=== PATIENT | female | born 1960 | race Caucasian/White ===

== ENCOUNTER 2024-08-08 18:11 | Inpatient (IN) | payer BC, SELFPAY ==
[2024-08-08] VITALS (21 sets, daily range): BP systolic 120–162; BP diastolic 84–113; PULSE 78–94; RESP 12–23; TEMP 36.3–36.4; O2SAT 95–98; BMI 22.1; BMI 22.0
--- NOTE | 2024-08-08 18:14 | ECG_ITS ---
[facility]: 2024-[facility]08 Pat Name: Monica Chinchilla Department: Room: Gender: Female Market Research Interviewer: : 1960 Requested By: Yulia Saldivar Order Number: [id number] [email or web address] MD: Rojelio Mccloud M.D. Measurements Intervals [place] Rate: 85 P: 71 VT: 141 QRS: 69 QRSD: 78 T: 91 QT: 357 QTc: 427 Interpretive Statements SINUS RHYTHM No previous ECG available for comparison Electronically Signed On 08-08-2024 19:12:41 FLIGHT SECURITY SPECIALIST by Rojelio Mccloud M.D. [id number]
--- NOTE | 2024-08-08 18:14 | XACV_ITS ---
Ht: 160 cm Wt: 54 kg BSA: 1.55 m2 Gender: Female : 1960 Any Known Allergies: Penicillins Exam Priority: Routine Procedure(s): Procedure Description: Diagnostic procedure Procedure Description: PCI procedure Procedure Description: Left Heart Catheterization Procedure Description: Left ventriculography Procedure Description: PTCA Procedure Description: Miscellaneous Procedure Description: ACT Procedure Description: Coronary Angiography Diagnostic Cath Status: Emergency Diagnostic Findings * Left Main has no disease. * Circumflex has no disease. Luminal irregularities without significant stenosis. * Mid Left Anterior Descending: subtotal occlusion, MUSTAPHA: 3 flow. * Mid Right Coronary Artery: moderate 50% stenosis, MUSTAPHA: 3 flow. * Right Posterior AV: severe 90% stenosis, MUSTAPHA: 3 flow. * Posterior Descending Right: significant 80% stenosis, MUSTAPHA: 3 flow. * Coronary angiography shows right dominance. PCI Status: Urgent Conclusions 1. There is subtotal occlusion coronary artery disease with two vessel disease. 2. The septal and anterolateral rosenthal are hypokinetic. 3. The apex in the DSOUZA view is hypokinetic. 4. All other visualized rosenthal normal. 5. Normal left ventricular systolic function. Ejection fraction of 60%. Recommendations * 1-Return to ICU for close monitoring and routine PCI care 2-Continue IV heparin drip as per ACS protocol 3-Hold Plavix for possible CABG 4-Statin with LDL goal of 70 mg/dl, aspirin 81 mg p.o. daily for life long 5-CT surgery consults for CABG 6-Optimal medical management for [place] 7-Follow up with Dr. Wilson in four weeks and establish care with primary care physician. Diagnostic RX Recommendation: CABG LV EDP: 26 mmHg Ventriculography Ejection Fraction: 60.0 % Pressures Phase:Rest AO : 117 / 88 ( 101 ) @ 1:34:07 PM 126 / 83 ( 103 ) @ 1:34:07 PM 138 / 83 ( 109 ) @ 1:34:07 PM 143 / 59 ( 99 ) @ 1:34:07 PM LV : 148 / 5 / 23 @ 1:34:07 PM 4 / -3 / 4 @ 1:34:07 PM 146 / 5 / 20 @ 1:34:07 PM 145 / 4 / 20 @ 1:34:07 PM Valves Phase:DefaultPhase AV : 6.0 @ 7:34:07 PM AV Mean Gradient: 9.0 @ 7:34:07 PM Clinical Evaluation EBL: 5mL-10mL Procedural Details Procedure Consent Obtained. Pre-Procedure Time Out. Identified patient by full name and date of as verbalized by the patient/guarantor. Does the consent match the physician's order: N/A Emergent. Accurate & Complete Informed Consent: N/A Emergent. Inpatient/Outpatient History & Physical on Chart: N/A Emergent. If H&P is completed, is and addenduem needed: N/A Emergent; If yes, is the addendum complete: N/A Emergent. Visualize and Verify Site with Patient/Guarantor: N/A. Relevant Radiology Images available: N/A Emergent. Pre-op teaching completed and patient verbalized understanding. The risks, benefits, and alternatives of sedation and/or procedure were discussed by physician. The patient agrees to continue. Procedure started. Correct patient, site and procedure confirmed by cath team. PERRLA. Strong, equal hand ager operator bilaterally. Lungs clear x 5 lobes. IV Site on Arrival: 18 gauge in the left anticubital. IV Fluids: 0.9% NaCl at KVO. 400 mL infused prior to hemodialysis lab technician. Oxygen started at 2liters/min via nasal canula. right groin was prepped with chloroprep then draped in the usual sterile fashion. Baseline sample Acquired. HR: 90 BPM. right radial was prepped with chloroprep then draped in the usual sterile fashion. Physician arrived. Equipment: 6F - Radial. Cardiac Cath Pack. ACIST Manifold Kit Model BT 2000. Heparinized Saline (2 units/mL), 1000 mL bag. Physician scrubbed in. Immediate Pre-Procedure Time Out. Correct Patient: N/A Emergent; Correct Procedure: N/A Emergent; Correct Site: N/A Emergent; Correct Patient Position: N/A Emergent; Correct Supplies: N/A Emergent; Dried Flammable Prep: N/A Emergent; Blood Products Available: N/A Emergent;. Lidocaine 1% infiltrated to the right radial. Arterial access obtained. ACT drawn. Results 269 seconds. Therapeutic limits - pre-heparin administration 90-150 seconds and monitoring heparin during a vascular procedure >250 seconds. 6 gibraltarian XB 3 guide catheter was inserted over the wire. Runthrough guidewire was advanced through the guide catheter to lesion in the mid LAD. Inflation number : 1 A AB MINI TREK 1.50X6 RX BALLOON was prepped and advanced across the Mid LAD , then inflated to 12 ROBBIN for 0:15 seconds. Balloon pulled back on wire to check results. Results checked. Balloon out. Wire out. Guide catheter out. A 5 gibraltarian JR4 catheter in over wire. Called house superviser to get Nitro drip. Multiple views taken of right coronary artery. Catheter removed over the exchange wire. A 5 gibraltarian Angled Pig catheter in over wire. House super arrived. EDP Sample taken: LV 148/5,23; HR: 90 BPM; SpO2: 100%. LV gram performed in DSOUZA @ 10 mL/second for a total of 30 mL. EDP Sample taken: LV 4/-4,4; HR: 86 BPM; SpO2: 99%. EDP Sample taken: LV 146/5,20; HR: 88 BPM; SpO2: 100%. Pullback taken: LV 145/4,20; AO 138/83(109); Mean: 9mmHg, Peak to Peak: 6mmHg, SEP: 23sec/min; HR: 88 BPM; SpO2: 99%. Catheter removed over the exchange wire. Nitro drip started at 10 mcg. Physician scrubbed out. ACT drawn. Results 291 seconds. Therapeutic limits - pre-heparin administration 90-150 seconds and monitoring heparin during a vascular procedure >250 seconds. A TR Band was successful obtaining hemostatsis at the Right Radial artery insertion site. TR band placed. Hemostasis obtained. Post Procedure: Pulses reassessed and unchanged. PERRLA. Strong, equal hand ager operator bilaterally. No VTE prophylaxis required. Medication's Wasted: Lidocaine 1% = 18 mL. Medication's Wasted: Nitro = 49.8 mg. Medication's Wasted: Other = versed 1 mg. Medication's Wasted: Other = fentanyl 50 mcg. Contrast type used: Visipaque 320 mgI/mL, 500 mL bottle. Post-op diagnosis: stemi. PCI Indication: STEMI. Complications: none. Estimated blood loss: 5mL-10mL. Responsiveness - Normal response to verbal stimuli; alert and oriented, PERRLA. Airway - Unaffected, no intervention required; spontaneous ventilation. Circulation: W/N/L, pulses unchanged. Nausea/Vomiting: No. Total IV fluids: 59 mL. Procedure completed. Patient transferred by bed to ICU. Vital chart was stopped. Access Site Site: Right Radial artery Sheath Size: 6 Fr Hemostasis Method: TR Band Hemostasis Success: Successful Procedure Medications Start: 6:41 PM Stop: 6:41 PM Medication: Versed Amount: 1 mg Route: I.V. Start: 6:41 PM Stop: 6:41 PM Medication: Fentanyl Amount: 25 mcg Route: I.V. Start: 6:45 PM Stop: 6:45 PM Medication: Nitrogylcerin Amount: 200 mcg Route: I.A. Start: 6:47 PM Stop: 6:47 PM Medication: Versed Amount: 1 mg Route: I.V. Start: 6:50 PM Stop: 6:50 PM Medication: Heparin Amount: 3000 units Route: I.V. Start: 7:09 PM Stop: 7:09 PM Medication: Versed Amount: 1 mg Route: I.V. Start: 7:09 PM Stop: 7:09 PM Medication: Fentanyl Amount: 25 mcg Route: I.V. I, the attending physician, have reviewed and verified all procedure medications. Yes, all medications given per verbal order History/Risk Factors Hypertension: No Dyslipidemia: No Peripheral Arterial Disease (PAD): No Myocardial Infarction ([place]): No Obesity: No Renal Disease: No Prior Interventions PCI: No CABG: No Valve Surgery: No Report Signatures Finalized by Clotilde Wilson MD on 08/08/2024 09:52 PM
--- NOTE | 2024-08-08 18:14 | XRR_ITS ---
PROCEDURE INFORMATION: Exam: XR Chest Exam date and time: 08/08/2024 8:00 PM Age: 64 years old Clinical indication: Other: Stemi; Additional info: Cp TECHNIQUE: Imaging protocol: Radiologic exam of the chest. Views: 1 view. COMPARISON: No relevant prior studies available. FINDINGS: Lungs: Unremarkable. No consolidation. Pleural spaces: Unremarkable. No pleural effusion. No pneumothorax. Heart/Mediastinum: Unremarkable. No cardiomegaly. Bones/joints: Unremarkable. XR/XR chest 1V portable [id number] IMPRESSION: No acute findings.
--- NOTE | 2024-08-08 18:15 | W.ED.CHESTPA ---
HPI - Chest Pain General: Chief Complaint: Chest Pain Stated Complaint: stemi Time Seen by Provider: 08/08/24 18:14 Source: patient and EMS Mode of arrival: EMS Limitations: no limitations History of Present Illness: 64-year-old female states been having chest pain off and on today and called EMS EKG with EMS shows ST elevation patient received nitro aspirin states her pain is improved with a 1 out of 10 currently she has no history of heart disease does have a family history heart disease she is a smoker. Associated symptoms: Deny abdominal pain, dyspnea, fever(s), nausea or vomiting Related Data Allergies Allergy/AdvReac Type Severity Reaction Status Date / Time Penicillins Allergy ALGY-Anaphy Verified 08/08/24 18:15 laxis Review of Systems Const: Denies: fever(s), chills, body aches or change in appetite ENMT: Denies: throat pain or dental pain Card: Reports: chest pain Resp: Denies: dyspnea GI: Denies: abdominal pain, nausea, vomiting or diarrhea Musc: Denies: neck pain or back pain Skin/Breast: Denies: rash Neuro: Denies: headache(s) Physical Exam Const: COMMON NORMALS: patient oriented x3 HENMT: COMMON NORMALS: normocephalic and atraumatic HEAD & SCALP: normocephalic and atraumatic Eye: COMMON NORMALS: conjunctivae normal CONJUNCTIVA: Yes conjunctivae normal Neck/C-Spine: COMMON NORMALS: full ROM and supple Chest: COMMONS NORMALS: normal inspection of the chest Resp: COMMON NORMALS: normal respiratory effort Cardio: COMMON NORMALS: regular rate, regular rhythm and No murmurs present (Cardio) RATE: regular rate RHYTHM: regular rhythm Extremity: COMMON NORMALS: normal to inspection and full ROM Neuro: COMMON NORMALS: patient oriented x3, moves all extremities and no focal motor deficits Psych: COMMON NORMALS: mental status grossly normal, Normal thought process present and cooperative THOUGHT PROCESS: Normal thought process present Skin: COMMON NORMALS: no rashes or lesions noted and no wounds GENERAL SKIN EXAM: no rashes or lesions noted Course Vital Signs: Vital signs: Vital Signs Temperature 97.6 F 08/08/24 18:16 Pulse Rate 82 08/08/24 18:16 Respiratory Rate 16 08/08/24 18:16 Blood Pressure 154/110 08/08/24 18:16 Pulse Oximetry 98 08/08/24 18:16 Oxygen Delivery Me thod Room Air 08/08/24 18:16 MDM - Chest Pain Medical Decision Making pt presents here with stemi. Pt taken to laboratory scientist Lab Data 08/08/24 18:14 08/08/24 18:14 Laboratory Results WBC 7.39 10^3/uL (3.29-11.43) 08/08/24 18:14 RBC 5.01 10^6/uL (3.85-5.65) 08/08/24 18:14 Hgb 14.00 g/dL (11.27-16.99) 08/08/24 18:14 Hct 42.6 % (36-47) 08/08/24 18:14 MCV 85.0 fl (85-98) 08/08/24 18:14 MCH 27.9 pg (27-33) 08/08/24 18:14 MCHC 32.9 g/dL (30-55) 08/08/24 18:14 RDW 14.1 % (12.1-15.1) 08/08/24 18:14 Plt Count 305 10^3/cmm (157-399) 08/08/24 18:14 MPV 8.9 fL (7.4-10.4) 08/08/24 18:14 Neut % (Auto) 60.8 % 08/08/24 18:14 Lymph % (Auto) 29.4 % 08/08/24 18:14 [place] % (Auto) 6.6 % 08/08/24 18:14 Eos % (Auto) 1.5 % 08/08/24 18:14 Baso % (Auto) 1.4 % 08/08/24 18:14 Neut # (Auto) 4.50 10^3/uL (1.8-7.7) 08/08/24 18:14 Lymph # (Auto) 2.2 10^3/uL (0.8-4.8) 08/08/24 18:14 [place] # (Auto) 0.5 10^3/uL (0.2-0.9) 08/08/24 18:14 Eos # (Auto) 0.1 10^3/uL (0.0-0.8) 08/08/24 18:14 Baso # (Auto) 0.1 10^3/uL (0.0-0.1) 08/08/24 18:14 Nucleated RBC % (auto) 0 % 08/08/24 18:14 Nucleated RBCs # 0.0 /100WBC 08/08/24 18:14 No radiology studies performed this visit Discharge Plan Discharge Patient Disposition: Admitted As Inpatient Clinical Impression: ST elevation (STEMI) myocardial infarction Condition: Stable Coding Level of Care Code ED Teletypewriter Operator for Melissa Brock
[2024-08-08] MEDS: clopidogrel 300 mg Tablet 600 MG PO (18:18)
[2024-08-08] MEDS: heparin 5,000 unit/mL INJ 1 mL 4000 UNIT IVP (18:19)
[2024-08-08 18:22] LABS: Basophils # 0.1 10^3/uL (0.0-0.1); Basophils % 1.4 %; Eosinophils # 0.1 10^3/uL (0.0-0.8); Eosinophils % 1.5 %; Hematocrit 42.6 % (36-47); Lymphocytes # 2.2 10^3/uL (0.8-4.8); Lymphocytes % 29.4 %; Mean Corpuscular HGB Conc 32.9 g/dL (30-55); Mean Corpuscular Hemoglobin 27.9 pg (27-33); Mean Platelet Volume 8.9 fL (7.4-10.4); Monocytes # 0.5 10^3/uL (0.2-0.9); Monocytes % 6.6 %; Neutrophils % 60.8 %; Nucleated Red Blood Cells % 0 %; Platelet Count 305 10^3/cmm (157-399); Red Blood Count 5.01 10^6/uL (3.85-5.65); Red Cell Distribution Width 14.1 % (12.1-15.1); White Blood Count 7.39 10^3/uL (3.29-11.43)
--- NOTE | 2024-08-08 18:24 | PM.HP ---
Providers/Chief Complaint Admitting Physician: Clotilde Wilson MD Primary Care Provider: Kenyatta Chand MD Chief Complaint: stemi History of Present Illness Monica Chinchilla is a 64 year old female past medical history significant for continues tobacco abuse hypertension hyperlipidemia who was experiencing off-and-on chest pain for the past 1 to 2 weeks today when chest pain become more consistent and intense she called EMS, upon arrival EKG strip were consistent with anterior ST elevation VA with inferior wall reciprocal changes. STEMI pager was activated. I saw patient upon arrival in the ER at that time patient felt somewhat better symptom castle while ST segment returned to baseline it appeared to me that patient has unstable plaque with dynamic EKG changes and ST elevation requiring urgent left heart catheterization. All risk-benefit and alternative to the patient was explained. She agreed and would like to proceed with it. Medications/Allergies Allergies Allergy/AdvReac Type Severity Reaction Status Date / Time Penicillins Allergy ALGY-Anaphy Verified 08/08/24 18:15 laxis Vitals/I&O/Wt Last Vital Signs Temp 97.6 F 08/08/24 18:16 Pulse 82 08/08/24 18:16 Resp 16 08/08/24 18:16 BP 154/110 08/08/24 18:16 Pulse Ox 98 08/08/24 18:16 O2 Del Method Room Air 08/08/24 18:16 Weight last 48 hrs Weight 125 lb Weight 125 lb Physical Exam Const: OTHER: GENERAL: Patient is alert, awake and oriented x3. HEART: Regular S1 and S2. No murmur, rub or gallop. LUNGS: Clear to auscultate bilaterally. CENTRAL NERVOUS SYSTEM: Grossly nonfocal. EXTREMITIES: Lower extremities with out edema bilaterally. Data 08/08/24 18:14 08/08/24 18:14 A&P Assessment and plan (1) ST elevation (STEMI) myocardial infarction: We will proceed with left heart cath/PCI if indicated. Patient has been loaded with Plavix heparin and aspirin given in the ER. Further plan be advised as per progress the patient (2) Essential hypertension: Will optimize medication (3) Tobacco abuse: Advised quitting smoking. Patient told she is going to work on it (4) Hyperlipidemia LDL goal <70: Will start patient on statin will check lipids profile in the morning Attestations Medical Necessity Statement*: Patient will be admitted as inpatient, she is going through ST elevation VA and will be taken to the Marketing Operations Consultant. I am expecting her stay to cross more than 2 midnights Coding Level of Care Code Acute Code for Chg Fwd Diagnoses ST elevation (STEMI) myocardial infarction I21.3 Essential hypertension I10 Tobacco abuse Z72.0 Hyperlipidemia LDL goal <70 E78.5
[2024-08-08 19:22] LABS: Troponin(5th) Baseline 62 ng/L (0-10)
[2024-08-08 19:24] LABS: Alanine Aminotransferase 6 U/L (0-33); Albumin Level 4.2 g/dL (3.5-5.2); Alkaline Phosphatase 99 U/L (35-105); Anion Gap 18.1 (5-19); Aspartate Amino Transferase 15 U/L (0-32); Blood Urea Nitrogen 8 mg/dL (8-23); Calcium 9.3 mg/dL (8.5-10.5); Carbon Dioxide 22 mmol/L (22-29); Chloride 106 mmol/L (98-107); Creatinine Clr Calc Pharmacy 80.9288; Globulin 2.4 g/dL (1.3-4.6); Glomerular Filtration Rate 100.6 mL/min (90-130); Glucose 101 mg/dL (65-115); Osmolality Calculated 292 mOsm/kg (285-295); Potassium 4.1 mmol/L (3.5-5.1); Sodium 142 mmol/L (136-145); Total Bilirubin 0.2 mg/dL (0.15-1.2); Total Protein 6.6 g/dL (6.6-8.7)
--- NOTE | 2024-08-08 19:38 | P.PCN_ITS ---
Procedure Note: Date of procedure: 08/08/24 Pre-procedure diagnosis: Acute coronary syndrome with unstable non-ST elevation Post-procedure diagnosis: same Procedure: Left heart catheter was performed because of dynamic EKG changes and the patient presented with chest pain, ST elevation noted with chest pain which resolves after nitro glycerin to the baseline. Patient was taken to the Mushroom Spawn Maker noted to have highly calcified mid long LAD lesion not amenable to intervention. Were able to cross off into the lesion tried balloon angioplasty the smallest 1.5 x 8mm TREK balloon was not yielding waste noted given the calcified nature of long torturous mid LAD lesion not amenable to intervention and significant PDA lesion will recommend CABG. Left ventricle end-diastolic pressure was moderately elevated 26 mmHg, left ventricle ejection fraction was 65%. Family would like to go to [facility]. Will call CT surgery. Currently patient will be transferred to our ICU she appeared to be hemodynamically stable. Please note that patient in ER has received 600 mg of Plavix which will be discontinued Continue heparin Continue nitro drip Continue aspirin and statin Add beta-giovanni CT surgery will be consulted Estimated blood loss (mL): 10 Complications: No complication. Full report to follow. Coding Level of Care Code Acute Code for Obig Fwlalo
[2024-08-08] MEDS: nitroglycerin drip 50 MG/250 ML PREMIX (20:07)
[2024-08-08 21:04] LABS: Troponin 5 2HR 274.1 ng/L (0-10); Troponin 5 2HR Delta 212.1 ABS# (0-10)
--- NOTE | 2024-08-08 21:14 | ECG_ITS ---
[facility] Test Date: 2024-08-08 Pat Name: Monica Chinchilla Department: Room: [facility] Gender: Female Trade Mark Attorney: : 1960 Requested By: Yulia Saldivar Order Number: [id number] Reading MD: Rojelio Mccloud M.D. Measurements Intervals [place] Rate: 76 P: 57 AR: 146 QRS: 40 QRSD: 81 T: 99 QT: 395 QTc: 444 Interpretive Statements SINUS RHYTHM NONSPECIFIC T-WAVE ABNORMALITY Compared to ECG 08/08/2024 18:14:27 T-wave abnormality now present Electronically Signed On 08-09-2024 01:06:02 CONSTRUCTION CONSULTANT by Rojelio Mccloud M.D. [email or web address]
--- NOTE | 2024-08-08 21:24 | PM.TDS ---
Transfer Summary Providers Date of Admission: 08/08/24 19:42 Date of Discharge/Transfer: 08/08/24 Attending Provider at Admission: Clotilde Wilson MD Attending Provider at Transfer: Clotilde Wilson MD Consults: 64-year-old female past medical history significant for hypertension continues tobacco abuse nondiabetic presented with chest pain off and on going on for the last couple of weeks manage become more consistent he decided to come to the ER. EMS was called, EMS strip was consistent with ST elevation in the anterior lead with reciprocal changes, upon arrival nitroglycerin resolved the EKG changes patient became chest pain-free she was taken to the [facility] she was noted to have highly calcified mid long lesion, PDA significant and PLV moderate lesion, given highly calcified mid long LAD lesion not amenable to intervention and because of fact patient anterior wall ST elevation resolved and she is chest pain-free CT surgery was consulted at [facility] with Dr. Yao who graciously accepted patient for surgery. Currently patient is stable in the ICU awaiting bed. As soon as bed will be available patient will be transported to [facility] for possible CABG. Primary Care Provider: Kenyatta Chand MD Transfer Plans: Anticipated date of transfer: 08/08/24. Diagnoses at Discharge Discharge Diagnosis (1) ST elevation (STEMI) myocardial infarction: Details from hospital stay: Acute coronary syndrome with dynamic EKG changes non-STEMI unstable Continues tobacco abuse Hypertension Hyperlipidemia Will add beta-giovanni, continue aspirin and statin discontinue clopidogrel for possible CABG. Continue heparin and nitro drip. Status: Acute (2) Essential hypertension: Details from hospital stay: Will add beta-giovanni Status: Acute (3) Tobacco abuse: Details from hospital stay: Patient says she will work on quitting Status: Acute (4) Hyperlipidemia LDL goal <70: Details from hospital stay: On statin Status: Acute Reason for Visit Reason for Visit stemi Physical Exam Const: OTHER: GENERAL: Patient is alert, awake and oriented x3. HEART: Regular S1 and S2. No murmur, rub or gallop. LUNGS: Clear to auscultate bilaterally. CENTRAL NERVOUS SYSTEM: Grossly nonfocal. EXTREMITIES: Lower extremities with out edema bilaterally. TS Data Studies Completed and Pending Pending at discharge Category Date Time Status P[employer]KING [employer]ANT OPER[employer] request for service Stat Exams 08/08/24 18:14 Ordered XR chest 1V portable [id number] Stat Exams 08/08/24 18:14 Taken Troponin(5th) 6 hour. Timed Lab 08/09/24 00:14 Ordered Troponin(5th) 6 hour. Timed Lab 08/09/24 01:34 Ordered Laboratory Last Values WBC 7.39 10^3/uL (3.29-11.43) 08/08/24 18:14 RBC 5.01 10^6/uL (3.85-5.65) 08/08/24 18:14 Hgb 14.00 g/dL (11.27-16.99) 08/08/24 18:14 Hct 42.6 % (36-47) 08/08/24 18:14 MCV 85.0 fl (85-98) 08/08/24 18:14 MCH 27.9 pg (27-33) 08/08/24 18:14 MCHC 32.9 g/dL (30-55) 08/08/24 18:14 RDW 14.1 % (12.1-15.1) 08/08/24 18:14 Plt Count 305 10^3/cmm (157-399) 08/08/24 18:14 MPV 8.9 fL (7.4-10.4) 08/08/24 18:14 Neut % (Auto) 60.8 % 08/08/24 18:14 Lymph % (Auto) 29.4 % 08/08/24 18:14 [place] % (Auto) 6.6 % 08/08/24 18:14 Eos % (Auto) 1.5 % 08/08/24 18:14 Baso % (Auto) 1.4 % 08/08/24 18:14 Neut # (Auto) 4.50 10^3/uL (1.8-7.7) 08/08/24 18:14 Lymph # (Auto) 2.2 10^3/uL (0.8-4.8) 08/08/24 18:14 [place] # (Auto) 0.5 10^3/uL (0.2-0.9) 08/08/24 18:14 Eos # (Auto) 0.1 10^3/uL (0.0-0.8) 08/08/24 18:14 Baso # (Auto) 0.1 10^3/uL (0.0-0.1) 08/08/24 18:14 Nucleated RBC % (auto) 0 % 08/08/24 18:14 Nucleated RBCs # 0.0 /100WBC 08/08/24 18:14 Sodium 142 mmol/L (136-145) 08/08/24 18:14 Potassium 4.1 mmol/L (3.5-5.1) 08/08/24 18:14 Chloride 106 mmol/L (98-107) 08/08/24 18:14 Carbon Dioxide 22 mmol/L (22-29) 08/08/24 18:14 Anion Gap 18.1 (5-19) 08/08/24 18:14 BUN 8 mg/dL (8-23) 08/08/24 18:14 Creatinine 0.6 mg/dL (0.5-0.9) 08/08/24 18:14 GFR Calculation 100.6 mL/min (90-130) 08/08/24 18:14 Glucose 101 mg/dL (65-115) 08/08/24 18:14 Calculated Osmolality 292 mOsm/kg (285-295) 08/08/24 18:14 Calcium 9.3 mg/dL (8.5-10.5) 08/08/24 18:14 Total Bilirubin 0.2 mg/dL (0.15-1.2) 08/08/24 18:14 AST 15 U/L (0-32) 08/08/24 18:14 ALT 6 U/L (0-33) 08/08/24 18:14 Alkaline Phosphatase 99 U/L (35-105) 08/08/24 18:14 Troponin T Baseline Cancelled 08/08/24 19:59 Troponin T 120 Minute 274.1 ng/L (0-10) H 08/08/24 19:59 Delta Troponin T 212.1 ABS# (0-10) H* 08/08/24 19:59 Total Protein 6.6 g/dL (6.6-8.7) 08/08/24 18:14 Albumin 4.2 g/dL (3.5-5.2) 08/08/24 18:14 Globulin 2.4 g/dL (1.3-4.6) 08/08/24 18:14 Recent Clincial Data Last Vital Signs Temp 97.4 F L 08/08/24 20:00 Pulse 83 08/08/24 21:10 Resp 17 12/10/24 20:45 BP 149/97 08/08/24 21:00 Pulse Ox 95 08/08/24 20:45 O2 Del Method Room Air 08/08/24 20:00 Vital Signs Temp Pulse Resp BP Pulse Ox O2 Del Method 08/08/24 21:10 83 08/08/24 21:00 149/97 08/08/24 20:45 78 17 140/94 95 08/08/24 20:30 80 19 H 146/98 97 08/08/24 20:15 79 18 127/89 96 08/08/24 20:00 97.4 F L 83 23 H 129/84 97 Room Air 08/08/24 19:54 Room Air 08/08/24 19:45 120/84 95 08/08/24 19:44 98 08/08/24 18:16 97.6 F 82 16 154/110 98 Room Air Intake & Output/Weight 08/06/24 08/07/24 08/08/24 08/09/24 06:59 06:59 06:59 06:59 Weight 124 lb 8.979 oz Vitals Last Vital Signs Temp 97.4 F L 08/08/24 20:00 Pulse 83 08/08/24 21:10 Resp 17 08/08/24 20:45 BP 149/97 08/08/24 21:00 Pulse Ox 95 08/08/24 20:45 O2 Del Method Room Air 08/08/24 20:00 TS Medications Medications Acetaminophen (Acetaminophen 325 Mg Tablet) 650 mg PO Q6H PRN PRN Reason: MILD PAIN Al Hydrox/Mg Hydrox/Simethicone (Hihr-Ltz-Jkibvhjyp-Prince 30 Ml Udc) 30 ml PO Q15M PRN PRN Reason: INDIGESTION Atropine Sulfate (Atropine 1 Mg/Ml Sdv 1 Ml) 0.5 mg IVP PRN PRN PRN Reason: Symptomatic bradycardia Fentanyl (Fentanyl 50 Mcg/Ml Inj 2ml) 50 mcg IVP PRN PRN PRN Reason: Prior to sheath removal Magnesium Hydroxide (Magnesium Hydroxide 30 Ml Udc) 30 ml PO DAILY PRN PRN Reason: CONSTIPATION Naloxone HCl (Naloxone 0.4 Mg/Ml Sdv) 0.1 mg IVP Q2M PRN PRN Reason: RESPIRATORY RATE < 8/MIN Nitroglycerin (Nitroglycerin 0.4 Mg Sublingual Tablet) 0.4 mg SUBLINGUAL Q5M PRN PRN Reason: CHEST PAIN Temazepam (Temazepam 15 Mg Capsule) 15 mg PO BEDTIME PRN PRN Reason: INSOMNIA Discontinued Medications Aspirin (Aspirin 325 Mg Tablet) 325 mg PO ONCE ONE Stop: 08/08/24 18:15 Last Admin: 08/08/24 18:18 Dose: Not Given Clopidogrel Bisulfate (Clopidogrel 300 Mg Tablet) 600 mg PO ONCE ONE Stop: 08/08/24 18:15 Last Admin: 08/08/24 18:18 Dose: 600 mg Fentanyl (Fentanyl 50 Mcg/Ml Inj 2ml) Confirm Administered Dose 100 mcg .ROUTE .STK-MED ONE Stop: 08/08/24 18:20 Heparin Sodium (Porcine) (Heparin 5,000 Unit/Ml Inj 1 Ml) 4,000 unit 70 unit/kg (4000 unit) IVP ONCE ONE Stop: 08/08/24 18:16 Last Admin: 08/08/24 18:19 Dose: 4,000 unit Heparin Sodium (Porcine) (Heparin 5,000 Unit/Ml Inj 1 Ml) Confirm Administered Dose 10,000 unit .ROUTE .STK-MED ONE Stop: 08/08/24 18:20 Lidocaine HCl (Xylocaine) Confirm Administered Dose 20 mls @ as directed .ROUTE .STK-MED ONE Stop: 08/08/24 18:20 Nitroglycerin/Dextrose (Nitroglycerin Drip) Confirm Administered Dose 50 mg in 250 mls @ as directed .ROUTE .STK-MED ONE Stop: 08/08/24 19:15 Last Admin: 08/08/24 20:07 Dose: 1.5 mls/hr Midazolam HCl (Midazolam 1 Mg/Ml Inj 2 Ml) Confirm Administered Dose 2 mg .ROUTE .STK-MED ONE Stop: 08/08/24 18:20 Midazolam HCl (Midazolam 1 Mg/Ml Inj 2 Ml) Confirm Administered Dose 2 mg .ROUTE .STK-MED ONE Stop: 08/08/24 19:00 Nitroglycerin (Nitroglycerin 5 Mg/Ml Sdv 10 Ml) Confirm Administered Dose 50 mg .ROUTE .STK-MED ONE Stop: 08/08/24 18:20 Allergies Penicillins Allergy (Verified 08/08/24 18:15) ALGY-Anaphylaxis Discharge Plan Discharge Patient Disposition: Home Condition: Stable Referrals: Kenyatta Chand MD [Primary Care Provider] - Discharge Diet: Cardiac Discharge Activity: Bedrest Patient Instructions: Opioid Safety Assessment: Patient will be transferred as soon as bed available to the [facility] Transfer Attestations Time Spent in Transfer Care: greater than 30 min Quality Metrics Clinical Quality Measures [ Acute Myocardial Infaction { Clinical Trial Participant: No; Contraindication to aspirin: None; Aspirin prescribed; Contraindication to statin: None; Statin prescribed and Other (CABG recommended patient will be transferred);}] Coding Level of Care Code Acute Code for Chg Fwd Diagnoses ST elevation (STEMI) myocardial infarction I21.3 Essential hypertension I10 Tobacco abuse Z72.0 Hyperlipidemia LDL goal <70 E78.5
[2024-08-08] MEDS: atorvastatin 40 mg Tablet 80 MG PO (22:50)
[2024-08-08] MEDS: metoprolol succinate ER (24 HR) 25 mg Tablet 12.5 MG PO (22:51)
[2024-08-08] MEDS: nitroglycerin drip 50 MG/250 ML PREMIX IV (22:53)
--- NOTE | 2024-08-08 23:15 | PC.NURSE ---
TR band: 2mL or air were removed periodically from TR band with evaluation of site. TR band removed at 2300 and dressed with a tegaderm and gauze, no bleeding or hematoma noted.
[2024-08-09] VITALS (33 sets, daily range): BP systolic 103–153; BP diastolic 67–97; PULSE 69–90; RESP 13–37; TEMP 36.4–36.9; O2SAT 93–98; BMI 21.4
--- NOTE | 2024-08-09 00:08 | PC.NURSE ---
Nitro gtt: Dr. Wilson gave verbal orders to continue nitro drip and titrate to maintain BP in 120s systolic.
[2024-08-09 01:27] LABS: Troponin 5 6HR 702.5 ng/L (0-10); Troponin 5 6HR Delta 640.5 ng/L (0-12)
--- NOTE | 2024-08-09 01:34 | ECG_ITS ---
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 Measurements Intervals [place] Rate: 73 P: 62 VT: 145 QRS: 63 QRSD: 82 T: 109 QT: 421 QTc: 466 Interpretive Statements SINUS RHYTHM WITH SINUS ARRHYTHMIA MODERATE T-WAVE ABNORMALITY, CONSIDER ANTERIOR ISCHEMIA [-0.1+ mV T-WAVE IN V3/V4] Compared to ECG 08/08/2024 21:14:03 Possible ischemia now present T-wave abnormality still present Electronically Signed On 08-11-2024 22:20:43 RN [facility] by Jeremy Bryson M.D. [email or web address]
[2024-08-09 01:44] LABS: Partial Thromboplastin Time 27.3 SECONDS (23.9-36.7)
[2024-08-09] MEDS: heparin 5,000 unit/mL INJ 1 mL IVP ×2 (01:45→17:09)
[2024-08-09] MEDS: heparin drip 25,000 UNIT/500 ML PREMIX 16 UNIT IV (01:45)
[2024-08-09 01:48] LABS: Platelet Count 275 10^3/cmm (157-399)
[2024-08-09 08:59] LABS: Partial Thromboplastin Time 78.4 SECONDS (23.9-36.7)
[2024-08-09] MEDS: aspirin 81 mg EC Tablet PO (09:05)
[2024-08-09] MEDS: metoprolol succinate ER (24 HR) 25 mg Tablet 12.5 MG PO (09:05)
--- NOTE | 2024-08-09 14:54 | P.PN_ITS ---
<Statement entered by Clotilde Wilson MD - 08/10/24 21:52> Denies any more chest pain Ruled in for ACS GENERAL: Patient is alert, awake and oriented x3. HEART: Regular S1 and S2. No murmur, rub or gallop. LUNGS: Clear to auscultate bilaterally. CENTRAL NERVOUS SYSTEM: Grossly nonfocal. EXTREMITIES: Lower extremities with out edema bilaterally Assessment and plan Two-vessel coronary artery disease including proximal and mid high-grade torturous LAD lesion not amenable to intervention and PDA stenosis Advised CABG Continue aspirin statin beta-giovanni heparin and nitro drip Patient has been accepted at [facility] for transfer we will proceed with a Subjective 2 Subjective: Patient seen today. She denies chest pain or shortness of breath. Vital signs are stable. Discussed with patient about open heart surgery. At first she was reluctant but she does understand this is her best option. We are awaiting transfer to [facility] at this time. Medications: Reviewed: Yes Vitals/I&O/Wt Last Vital Signs Temp 98.2 F 08/09/24 12:00 Pulse 85 08/09/24 14:00 Resp 19 H 08/09/24 14:00 BP 123/76 08/09/24 14:00 Pulse Ox 97 08/09/24 14:00 O2 Del Method Room Air 08/09/24 14:00 08/08/24 08/09/24 08/09/24 22:59 06:59 14:59 Intake Total 4.075 / 4.075 10.25 / 14.325 540.8 / 540.8 Balance 4.075 / 4.075 10.25 / 14.325 540.8 / 540.8 Weight last 48 hrs Weight 121 lb 4.068 oz Weight 124 lb 8.979 oz Weight 125 lb Weight 125 lb Physical Exam 2 Const: OTHER: GENERAL: Patient is alert, awake and oriented x3. HEART: Regular S1 and S2. No murmur, rub or gallop. LUNGS: Clear to auscultate bilaterally. CENTRAL NERVOUS SYSTEM: Grossly nonfocal. EXTREMITIES: Lower extremities with out edema bilaterally. Data 08/09/24 01:17 08/08/24 18:14 A&P Assessment and plan (1) ST elevation (STEMI) myocardial infarction: Patient has a long LAD lesion and torturous artery as well as PDA and PLV lesion. She needs CABG. Awaiting transfer to [facility]. At this time will continue heparin. Will initiate beta-giovanni metoprolol 12.5. Statin and aspirin. Plavix on hold due to future surgery. Continue nitro drip. Qualifiers: Involved coronary artery: LAD coronary artery Qualified Code(s): I21.02 - ST elevation (STEMI) myocardial infarction involving left anterior descending coronary artery (2) Essential hypertension: Will optimize medication well-controlled at this time (3) Tobacco abuse: Advised quitting smoking. (4) Hyperlipidemia LDL goal <70: Continue statin therapy Plan As stated above Attestations 2 Medical Necessity Statement*: Patient will be admitted as inpatient, she is going through ST elevation PR and will be taken to the Motor Equipment Commanding Officer. I am expecting her stay to cross more than 2 midnights we are awaiting a bed at [facility] Coding Level of Care Code Acute Code for Chg Fwd Diagnoses ST elevation myocardial infarction involving left anterior descending (LAD) coronary artery I21.02 Involved coronary artery: LAD coronary artery Essential hypertension I10 Tobacco abuse Z72.0 Hyperlipidemia LDL goal <70 E78.5
[2024-08-09] MEDS: FUROsemide 10 mg/mL SDV 4mL 40 MG IVP (15:10)
[2024-08-09] MEDS: potassium chloride ER 20 mEq Tablet PO (15:10)
--- NOTE | 2024-08-09 16:15 | PC.NURSE ---
Report called to Richard Gamboa RN at [facility].
--- NOTE | 2024-08-09 16:26 | PC.NURSE ---
Notified Saeid Agosto, patients son of room assignment at [facility].
[2024-08-09 16:46] LABS: Partial Thromboplastin Time 48.3 SECONDS (23.9-36.7)
--- NOTE | 2024-08-09 17:26 | PC.NURSE ---
Report given to EMS personal, discharged via ems stretcher. Notified Saeid, patients son that patient was on her way to [facility]. Notified [facility] nurse Richard Gamboa that patient was on her way and PTT result was 48.3 for which a 1200 unit heparin bolus was given and Heparin drip was increased to 16ml/hr.
== END 2024-08-09 17:15 | disposition short-term general hospital (02) | DRG 282 ==
LOC: ER 18:21 → CCL 18:32 → ICU 19:44
PROVIDERS: Admitting Provider Internal Medicine Cardiovascular Disease; Emergency Provider Emergency Medicine; PCP Family Medicine; Visit Provider Internal Medicine Cardiovascular Disease
PROC: B211YZZ Fluoroscopy of Multiple Coronary Arteries using Other Contrast (ICD-10-PCS; principal; 2024-08-08 18:20)
DX: I21.29 ST elevation (STEMI) myocardial infarction involving other sites (principal); F17.210 Nicotine dependence, cigarettes, uncomplicated; I10 Essential (primary) hypertension; E78.5 Hyperlipidemia, unspecified; I25.10 Atherosclerotic heart disease of native coronary artery without angina pectoris; Z88.0 Allergy status to penicillin
CPT/HCPCS: 36415; 71045; 80053; 84484; 85025; 85049; 85347; 85730; 92920; 93005; 93458; 96374; 99152; 99153; 99285; C1725; C1769; C1887; C1894; J1644; J1940; J2250; J3010; J3490; Q9967

== ENCOUNTER 2025-01-07 04:06 | Emergency (ER) | payer BC, SELFPAY ==
[2025-01-07 04:20] VITALS: BP 128/88; PULSE 94; RESP 16; TEMP 36.8; O2SAT 96; BMI 21.2
[2025-01-07] MEDS: oxymetazoline 0.05% Nasal Spray 15 mL 2 SPRAY NOSTRIL-B (04:44)
[2025-01-07] MEDS: gelatin 12-7 mm Sponge 1 EACH TOPICAL ×2 (04:44→06:23)
[2025-01-07 05:24] LABS: Basophils # 0.1 10^3/uL (0.0-0.1); Basophils % 1.4 %; Eosinophils # 0.2 10^3/uL (0.0-0.8); Eosinophils % 3.3 %; Hematocrit 41.9 % (36-47); Lymphocytes # 2.4 10^3/uL (0.8-4.8); Lymphocytes % 33.6 %; Mean Corpuscular Hemoglobin 27.5 pg (27-33); Mean Platelet Volume 9.3 fL (7.4-10.4); Monocytes # 0.5 10^3/uL (0.2-0.9); Monocytes % 7.4 %; Neutrophils # 3.81 10^3/uL (1.8-7.7); Neutrophils % 53.9 %; Nucleated Red Blood Cells % 0 %; Platelet Count 317 10^3/cmm (157-399); Red Blood Count 4.87 10^6/uL (3.85-5.65); Red Cell Distribution Width 13.4 % (12.1-15.1); White Blood Count 7.06 10^3/uL (3.29-11.43)
[2025-01-07 05:43] LABS: INR 0.88 (0.8-1.2)
[2025-01-07 05:44] LABS: Partial Thromboplastin Time 26.3 SECONDS (23.9-36.7)
[2025-01-07] MEDS: ondansetron 2 mg/ML SDV 2 mL 4 MG IVP (05:50)
[2025-01-07] MEDS: sodium chloride 0.9% 500 ML 999 ML IV (05:50)
[2025-01-07 05:53] LABS: Glucose Point of Care 147 mg/dL (70-110)
[2025-01-07 06:01] VITALS: BP 122/75; PULSE 80; RESP 16; O2SAT 97
--- NOTE | 2025-01-07 06:10 | W.ED.EPISTAX ---
HPI - Epistaxis General: Chief complaint: Epistaxis Stated complaint: Nosebleed for 3 Hours Time Seen by Provider: 01/07/25 04:34 History of Present Illness: Nosebleed from the right side while at home. She tried to get the bleeding to stop at home, but has been unsuccessful for 3 hours. She takes Plavix. Related Data Home Medications ?Medication ?Instructions ?Recorded ?Confirmed atorvastatin 80 mg tablet 80 mg PO DAILY 09/19/24 12/19/24 clopidogrel 75 mg tablet 75 mg PO DAILY 09/19/24 12/19/24 lisinopril 10 mg tablet 10 mg PO DAILY 09/19/24 12/19/24 bupropion HCl 150 mg 24 hr tablet, 150 mg PO QAM 12/19/24 12/19/24 extended release (Wellbutrin XL) Previous Rx's ?Medication ?Instructions ?Recorded metoprolol succinate 25 mg 37.5 mg (1.5 x 25 mg) PO DAILY 09/19/24 tablet,extended release 24 hr #135 tabs Allergies Allergy/AdvReac Type Severity Reaction Status Date / Time Penicillins Allergy ALGY-Anaphy Verified 12/19/24 11:10 laxis [facility] PFSH: Medical History (Updated 01/07/25 @ 06:24 by Gareth More DO) Coronary artery disease Surgical History Hx of CABG Family History (Updated 09/19/24 @ 11:29 by Sophie Matt LPN) Mother CAD (coronary artery disease) Hypertension Father CAD (coronary artery disease) Hypertension Denies family history of Diabetes Cancer Social History Smoking and tobacco/nicotine status: former use of tobacco/nicotine Quit status (tobacco/nicotine): has quit using Year quit tobacco: 2023 Alcohol intake: never Substance/Drug Use: never Physical Exam Const: COMMON NORMALS: no acute distress GENERAL APPEARANCE: cooperative; not ill appearing and not frail appearing HENMT: COMMON NORMALS: normocephalic, atraumatic and Normal external nose present HEAD & SCALP: normocephalic and atraumatic FACE & SINUS: normal facial exam and face symmetric NOSE: Normal external nose present OTHER: Significant bleeding from right nare. Active site not identified due to briskness. Eye: COMMON NORMALS: Equal, round and reactive pupils present and EOMs intact bilaterally PUPIL: Yes Equal, round and reactive pupils present Neck/C-Spine: GENERAL: Yes trachea midline Chest: CHEST: Yes Symmetrical chest wall rise Resp: COMMON NORMALS: normal respiratory effort, No retractions, No use of accessory muscles and clear to auscultation bilaterally AUSCULTATION: clear to auscultation bilaterally Cardio: COMMON NORMALS: regular rate and regular rhythm RATE: regular rate RHYTHM: regular rhythm GI: COMMON NORMALS: Normal to inspection, nondistended, normoactive bowel sounds present Extremity: COMMON NORMALS: no pedal edema Neuro: UMA COMA SCALE: document GCS findings Uma coma scale eye opening: Spontaneous [place] coma scale verbal response: Orientated [place] coma scale motor response: Obey commands [place] coma scale total score: 15 SENSORY EXAM: Yes extremities (intact) Psych: COMMON NORMALS: speech normal SPEECH: Yes normal speech Skin: COMMON NORMALS: no rashes or lesions noted GENERAL SKIN EXAM: no rashes or lesions noted Course Vital Signs: Vital signs: Vital Signs Temperature 98.3 F 01/07/25 04:20 Pulse Rate 79 01/07/25 06:33 Respiratory Rate 16 01/07/25 06:33 Blood Pressure 122/76 01/07/25 06:33 Pulse Oximetry 98 01/07/25 06:33 Oxygen Delivery Me thod Room Air 01/07/25 06:01 MDM - Epistaxis Medical Decision Making Bleeding stopped after packing was Afrin soaked Gelfoam. Some bleeding cauterized. Gelfoam left in place. The patient had a brief syncopal episode while getting her blood drawn. She became diaphoretic. [place] to be vasovagal in nature. She recovered A baseline quickly. Vitals are stable. blood pressure 122 / 76. Heart rate 79. Hemoglobin is 13.4. Your account 317. Follow-up with ENT surgery. Return for rebleeding. Lab Data 01/07/25 05:18 Laboratory Results WBC 7.06 10^3/uL (3.29-11.43) 01/07/25 05:18 RBC 4.87 10^6/uL (3.85-5.65) 01/07/25 05:18 Hgb 13.40 g/dL (11.27-16.99) 01/07/25 05:18 Hct 41.9 % (36-47) 01/07/25 05:18 MCV 86.0 fl (85-98) 01/07/25 05:18 MCH 27.5 pg (27-33) 01/07/25 05:18 MCHC 32.0 g/dL (30-55) 01/07/25 05:18 RDW 13.4 % (12.1-15.1) 01/07/25 05:18 Plt Count 317 10^3/cmm (157-399) 01/07/25 05:18 MPV 9.3 fL (7.4-10.4) 01/07/25 05:18 Neut % (Auto) 53.9 % 01/07/25 05:18 Lymph % (Auto) 33.6 % 01/07/25 05:18 [place] % (Auto) 7.4 % 01/07/25 05:18 Eos % (Auto) 3.3 % 01/07/25 05:18 Baso % (Auto) 1.4 % 01/07/25 05:18 Neut # (Auto) 3.81 10^3/uL (1.8-7.7) 01/07/25 05:18 Lymph # (Auto) 2.4 10^3/uL (0.8-4.8) 01/07/25 05:18 [place] # (Auto) 0.5 10^3/uL (0.2-0.9) 01/07/25 05:18 Eos # (Auto) 0.2 10^3/uL (0.0-0.8) 01/07/25 05:18 Baso # (Auto) 0.1 10^3/uL (0.0-0.1) 01/07/25 05:18 Nucleated RBC % (auto) 0 % 01/07/25 05:18 Nucleated RBCs # 0.0 /100WBC 01/07/25 05:18 PT 12.60 SECONDS (12.1-14.9) 01/07/25 05:18 INR 0.88 (0.8-1.2) 01/07/25 05:18 APTT 26.3 SECONDS (23.9-36.7) 01/07/25 05:18 POC Glucose 147 mg/dL (70-110) H 01/07/25 05:41 Blood Type B Negative 01/07/25 05:18 Rho(D) Type Rh negative 01/07/25 05:18 Antibody Screen Negative 01/07/25 05:18 No radiology studies performed this visit Discharge Plan Discharge Patient Disposition: Home Clinical Impression: Epistaxis Condition: Stable Prescriptions: No Action clopidogrel 75 mg tablet 75 mg PO DAILY atorvastatin 80 mg tablet 80 mg PO DAILY lisinopril 10 mg tablet 10 mg PO DAILY metoprolol succinate 25 mg tablet extended release 24 hr 37.5 mg PO DAILY Qty: 135 3RF bupropion HCl [Wellbutrin XL] 150 mg tablet extended release 24 hr 150 mg PO QAM Discharge Orders: Discharge ED (Routine); Ordered 01/07/25 Ordered By: Gareth More Referrals: Lora Leija APN [Primary Care Provider, Family Practice] Eric Reyes MD [Physician, Ear, Nose, Throat] - 1-3 days Patient Instructions: Nosebleed (ED), Opioid Safety, Pain Management Activity Restrictions/Additional Instructions: Call ENT surgery at the number above for a follow-up appointment. Leave packing in at least 24 hours if possible. Do not blow your nose for least 24 hours. Return for any repeat bleeding. Print Language: Kazakh Coding Level of Care Code ED Kit Planner for Melissa Brock
[2025-01-07] MEDS: silver nitrate applicator 1 EACH TOPICAL (06:23)
[2025-01-07 06:33] VITALS: BP 122/76; PULSE 79; RESP 16; O2SAT 98
--- NOTE | 2025-01-07 12:39 | ECG_ITS ---
[employer] Test Date: 2025-01-07 Pat Name: Monica Chinchilla Department: Room: Gender: Female Director Learning Services: : 1960 Requested By: Gareth Colby Order Number: [id number] Abrahan MD: Rojelio Mccloud M.D. Measurements Intervals [place] Rate: 76 P: 69 UT: 156 QRS: 77 QRSD: 88 T: 67 QT: 410 QTc: 462 Interpretive Statements SINUS RHYTHM POSSIBLE LEFT ATRIAL ENLARGEMENT [-0.1mV P-WAVE IN V1/V2] NONSPECIFIC T-WAVE ABNORMALITY Compared to ECG 08/09/2024 01:51:40 Sinus arrhythmia no longer present Possible ischemia no longer present T-wave abnormality still present Electronically Signed On 01-07-2025 21:22:18 CDT by Rojelio Mccloud M.D. [id number]
== END 2025-01-07 06:35 | disposition home or self-care (01) ==
PROVIDERS: Emergency Provider Emergency Medicine; PCP Nurse Practitioner Family
DX: R04.0 Epistaxis (principal); Z79.02 Long term (current) use of antithrombotics/antiplatelets; Z87.891 Personal history of nicotine dependence; Z95.1 Presence of aortocoronary bypass graft; I25.10 Atherosclerotic heart disease of native coronary artery without angina pectoris
CPT/HCPCS: 36415; 36416; 82962; 85025; 85610; 85730; 86850; 86900; 93005; 96374; 99284; J2405; J7040; J9999

== ENCOUNTER → 2025-06-18 14:45 | Outpatient (BNVA) | payer MEDICARE, SELFPAY | PROVIDERS: PCP Nurse Practitioner Family; Visit Provider Internal Medicine Cardiovascular Disease | DX: I25.10 Atherosclerotic heart disease of native coronary artery without angina pectoris (principal); R00.2 Palpitations; E78.5 Hyperlipidemia, unspecified; R23.0 Cyanosis; R04.0 Epistaxis; I95.9 Hypotension, unspecified; Z95.1 Presence of aortocoronary bypass graft; Z87.891 Personal history of nicotine dependence | CPT/HCPCS: 99214 ==